=== PATIENT | male | born 1950 | race Caucasian/White ===

== ENCOUNTER 2020-05-09 06:46 | Emergency (ER) | payer BC, MEDICAID, MEDICARE ==
[~2020-05-09] VITALS: Ht 167.6 cm; Wt 82.0 kg
[2020-05-09] MEDS ORDERED: ONDANSETRON HCL 4MG/2ML INJ IV STA (07:48)
[2020-05-09] MEDS ORDERED: MORPHINE SULFATE 4 MG/ML CPJ (NOT FOR IM USE) IV STA (07:48)
[2020-05-09] MEDS ORDERED: SODIUM CHLORIDE 0.9% 1,000 ML IV ONE (08:00)
[2020-05-09 09:12] LABS: BASOPHILS % 0.5 % (0.0-2.0); EOSINOPHILS % 0.6 % (0.0-5.0); HEMATOCRIT. 42.3 % (42.0-52.0); HEMOGLOBIN. 14.5 g/dL (14.0-18.0); LYMPHOCYTES % 20.5 % (20.0-50.0); MEAN CORPUSCULAR HEMOGLOBIN 31.8 pg (28.0-32.0); MEAN CORPUSCULAR VOLUME 92.3 fL (80.0-94.0); NEUTROPHILS % 70.4 % (40.0-76.0); PLATELET 185 x1000/uL (130-400); RED BLOOD CELL COUNT 4.58 mill/uL (4.7-6.1); RED CELL DISTRIBUTION WIDTH 13.5 % (11.6-14.6)
[2020-05-09 09:13] LABS: CLARITY URINE CLEAR (CLEAR); COLOR URINE YELLOW (YELLOW); KETONES URINE NEGATIVE (NEGATIVE); LEUKOCYTE ESTERASE URINE NEGATIVE (NEGATIVE); NITRITE URINE NEGATIVE (NEGATIVE); OCCULT BLOOD URINE NEGATIVE (NEGATIVE); PH URINE 5.5 (4.5-8.0); PROTEIN URINE NEGATIVE (NEGATIVE); SPECIFIC GRAVITY URINE 1.017 (1.005-1.030); UROBILINOGEN URINE 0.2 E.U./dL (0.2-1.0)
[2020-05-09 09:20] LABS: CHLORIDE 102 mEq/L (98-107)
[2020-05-09 09:32] LABS: PROTHROMBIN TIME 10.9 sec (9.6-11.0)
[2020-05-09 09:33] LABS: CREATINE KINASE 70 IU/L (39-308); CREATINE KINASE MB FRACTION < 1.0 ng/mL (0.5-3.6)
[2020-05-09] MEDS ORDERED: IOHEXOL-300 100 ML BOTTLE ONE (11:35)
[2020-05-09 14:13] VITALS: BP 138/67
== END 2020-05-09 14:27 | disposition home or self-care (01) ==
LOC: ER 06:46
DX: S22.31XA Fracture of one rib, right side, initial encounter for closed fracture (principal); S27.9XXA Injury of unspecified intrathoracic organ, initial encounter; W18.30XA Fall on same level, unspecified, initial encounter; Y93.89 Activity, other specified; Y92.89 Other specified places as the place of occurrence of the external cause; Y99.8 Other external cause status
CPT/HCPCS: 36415; 70450; 71045; 71260; 74177; 80053; 81003; 82550; 82553; 83690; 84484; 85025; 85610; 93005; 96361; 96374; 96375; 99285; J2270; J2405; J7030; Q9967